=== PATIENT | male | born 1975 | race Hispanic/Latino ===

== ENCOUNTER → 2016-11-27 | Outpatient (CLI) | payer OTHER ==
--- NOTE | 2016-11-27 11:11 | REP ---
CHEST X-RAY PA AND LATERAL: 11/27/2016. Clinical history: Order states abnormal chest x-ray on 11/06/2016 with density in left lower lobe. The patient is a former smoker. Comparison: 11/06/2016 at [facility]. Findings: Two views are provided. The lungs are well inflated. The CP angles are sharply defined. There is no pleural effusion, lateral pleural thickening, apical scarring or pneumothorax. I see no dense consolidation, parenchymal mass or other significant finding in the left base. A small epicardial fat pad is suggested at the left base. There is a questionable rounded nodular density at the right base cardiophrenic angle which could be epicardial fat pad, nodule or other. I do not have other studies for comparison. The mid and upper lung zones were clear. Hilar and mediastinal contours, airway and aorta unremarkable. The bony thorax without focal lesion. No free air. Impression: 1. There is no plain film evidence of abnormality in the left lung base. There is a questionable nodule in the right cardiophrenic angle. In the absence of prior studies, consider chest CT. A better level of inflation on today's study suggests a small rounded nodular density which is not visible in the right base on the previous exam, obscured by diaphragm. This might also be epicardial fat pad but lung malignancy is not excluded. No other finding. Chest CT should be considered in this former smoker. Signed by Shahzad Heredia MD 11/27/2016 02:46 P
== END ==
LOC: M RAD 09:11
PROVIDERS: ATTEND Surgery
DX: R91.8 Other nonspecific abnormal finding of lung field (principal)

== ENCOUNTER → 2017-01-05 | Outpatient (CLI) | payer OTHER ==
[~2017-01-05] MED LIST: ISOVUE-370 76% 100ML VIAL (Q9967) As Ordered ONE
--- NOTE | 2017-01-05 14:35 | REP ---
CT of the chest with IV contrast: Comparison is the PA and lateral plain film study dated 11/27/1926 that identified a questionable nodule in the right cardiophrenic angle. On the CT study today there are no lung masses or nodules. There are no infiltrates or effusions. There is an epicardial fat pad interposed between the right cardiac margin and the medial edge of the right diaphragmatic dome artifactually stimulating a nodular density on the plain films in this location. There is minor discoid atelectasis in the lateral basilar segment of the right lower lobe. There is no mediastinal, hilar or axillary lymphadenopathy. Thoracic aorta is unremarkable. Cardiac size is normal. The visualized upper abdominal contents are unremarkable. There is no adrenal mass. Impression: There is no lung nodule or mass. The suspected nodule in the right cardiophrenic angle on the comparison plain film study is artifact from an epicardial fat pad. There is minor discoid atelectasis in the right lower lobe. Otherwise, negative CT study of the chest. Signed by Owen Yusuf MD 01/05/2017 02:26 P
== END ==
LOC: M RAD 12:52
PROVIDERS: ATTEND Surgery
DX: R91.8 Other nonspecific abnormal finding of lung field (principal)
CPT/HCPCS: 71260; Q9967